=== PATIENT | male | born 1975 | race Caucasian/White ===

== ENCOUNTER 2017-07-20 15:35 | Emergency (ER) | payer SELFPAY ==
[2017-07-20] MEDS ORDERED: ONDANSETRON 4 MG/2 ML VIAL ONE (15:57)
[2017-07-20 16:24] LABS: Potassium 3.7 mEq/L (3.6-5.0)
--- NOTE | 2017-07-20 16:24 | RAD REPORT ---
EXAM DESCRIPTION: RAD - Chest Single View - 07/20/2017 4:09 pm CLINICAL HISTORY: Vomiting, altered mental status, possible heat exhaustion COMPARISON: March 27 TECHNIQUE: AP portable chest image was obtained 1605 hours . FINDINGS: Lung volumes are low. No pulmonary edema or focal lung parenchymal process. Interstitial m arkings are similar to the comparison when adjusting for the shallow inspiration. Heart and vasculatu re are normal. No measurable pleural effusion and no pneumothorax. No gross bony abnormality seen. No acute aortic findings suspected. IMPRESSION: No acute cardiopulmonary process.
[2017-07-20 16:31] LABS: Absolute Lymphocytes (CBC) 1.6 K/uL (0.7-4.9); Absolute Monocytes 0.7 K/uL (0.1-1.3); Absolute Neutrophil 2.7 K/uL (1.8-8.0); Albumin 4.3 g/dL (3.2-5.5); Basophils % 0.7 % (0-1.3); Bilirubin Direct 0.1 mg/dL (0-0.2); Bilirubin Total 0.7 mg/dL (0.3-1.2); Hematocrit 45.6 % (39.6-49.0); Lymphocytes % 31.1 % (15.3-44.8); MCH 29.1 pg (27.0-35.0); MCV 87.2 fL (80-100); MPV 8.3 fL (7.6-11.3); Magnesium 1.9 mg/dL (1.8-2.5); Monocytes % 13.7 % (3.3-12.3); Protein, Total 7.4 g/dL (6.0-8.3); RBC Red Blood Cell Count 5.24 M/uL (4.33-5.43)
[2017-07-20 16:34] LABS: CKMB Creatine Kinase MB 2.3 ng/ml (0.3-4.0)
--- NOTE | 2017-07-20 17:10 | RAD REPORT ---
EXAM DESCRIPTION: CT - Head Brain Wo Cont - 07/20/2017 5:01 pm CLINICAL HISTORY: Headache COMPARISON: None. TECHNIQUE: Axial 5 mm thick images of the head were obtained without IV contrast. All CT scans are performed using dose optimization technique as appropriate and may include automated exposure control or mA/KV adjustment according to patient size. FINDINGS: No intracranial hemorrhage, mass, edema or shift of mid-line structures. No acute infarcti on changes seen. No abnormal extra-axial fluid collections. Ventricles are normal. Mastoid air cells and visualized portions of the paranasal sinuses are clear. No acute bony findings. IMPRESSION: Negative non-contrast CT head examination.
[2017-07-20] MEDS ORDERED: ACETAMINOPHEN 500 MG TAB ONE (17:45)
--- NOTE | 2017-07-20 18:42 | EDPHYS ---
Physician Documentation [facility] Name: Luis Angel Bower Age: 41 yrs Sex: Male : 1975 Arrival Date: 07/20/2017 Time: 15:42 Bed 4 Private MD: ED Physician Cuauhtemoc James HPI: 07/20 16:15 This 41 yrs old Male presents to ER via EMS with complaints of Vomiting. pm1 16:15 The patient presents to the emergency department with vomiting. Onset: The pm1 symptoms/episode began/occurred 1 hour after lunch around 1315. Possible causes: Heat or bad food. The symptoms are aggravated by nothing. The symptoms are alleviated by nothing. Associated signs and symptoms: Pertinent positives: nausea, vomiting, Headache, Pertinent negatives: abdominal pain, fever. The patient has not experienced similar symptoms in the past. Patient ate egg rolls and sweet and sour sauce for lunch. About 1 hour later the patient started having vomiting. After multiple episodes of vomiting, the patient reports that he thought that he tasted some blood. Patient started hyperventilating according to his boss and started reporting a headache with some numbness to both arms. 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 Patient reports that the heat monitor on his leg was 104. 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 - Social history:: Smoking status: . - Ebola Screening: : Patient negative for fever greater than or equal to 101.5 degrees Fahrenheit, and additional compatible Ebola Virus Disease symptoms Patient denies exposure to infectious person Patient denies travel to an Ebola-affected area in the 21 days before illness onset No symptoms or risks identified at this time. ROS: 16:15 Eyes: Negative for injury, pain, redness, and discharge, ENT: Negative for injury, pm1 pain, and discharge, Neck: Negative for injury, pain, and swelling, Cardiovascular: Negative for chest pain, palpitations, and edema, Respiratory: Negative for shortness of breath, cough, wheezing, and pleuritic chest pain. 16:15 Back: Negative for injury and pain, : Negative for injury, bleeding, discharge, and swelling, MS/Extremity: Negative for injury and deformity, Skin: Negative for injury, rash, and discoloration. 16:15 Constitutional: Positive for body aches, Negative for chills, fever, poor PO intake. 16:15 Abdomen/GI: Positive for nausea and vomiting, Negative for abdominal pain, diarrhea. 16:15 Neuro: Positive for headache, Negative for numbness, syncope, near syncope, tingling. Exam: 16:15 Constitutional: This is a well developed, well nourished patient who is awake, alert, pm1 and in no acute distress. Head/Face: Normocephalic, atraumatic. Eyes: Pupils equal round and reactive to light, extra-ocular motions intact. Lids and lashes normal. Conjunctiva and sclera are non-icteric and not injected. Cornea within normal limits. Periorbital areas with no swelling, redness, or edema. ENT: Nares patent. No nasal discharge, no septal abnormalities noted. Tympanic membranes are normal and external auditory canals are clear. Oropharynx with no redness, swelling, or masses, exudates, or evidence of obstruction, uvula midline. Mucous membranes moist. Neck: Trachea midline, no thyromegaly or masses palpated, and no cervical lymphadenopathy. Supple, full range of motion without nuchal rigidity, or vertebral point tenderness. No Meningismus. Chest/axilla: Normal chest wall appearance and motion. Nontender with no deformity. No lesions are appreciated. Cardiovascular: Regular rate and rhythm with a normal S1 and S2. No gallops, murmurs, or rubs. No pulse deficits. Respiratory: Lungs have equal breath sounds bilaterally, clear to auscultation and percussion. No rales, rhonchi or wheezes noted. No increased work of breathing, no retractions or nasal flaring. Abdomen/GI: Soft, non-tender, with normal bowel sounds. No distension or tympany. No guarding or rebound. No evidence of tenderness throughout. Back: No spinal tenderness. No costovertebral tenderness. Full range of motion. Skin: Warm, dry with normal turgor. Normal color with no rashes, no lesions, and no evidence of cellulitis. MS/ Extremity: Pulses equal, no cyanosis. Neurovascular intact. Full, normal range of motion. 16:15 Neuro: Orientation: is normal, to person, place, time, situation, Motor: moves all fours. Vital Signs: 15:49 BP 112 / 91; Pulse 82 MON; Resp 16 S; Temp 98.2(O); Pulse Ox 100% on R/A; Pain 7/10; iw 16:33 BP 120 / 94 Sitting; Pulse 83; Resp 16; Pulse Ox 99% on R/A; ag 16:33 BP 131 / 94 Standing; Pulse 88; Resp 19; Pulse Ox 96% on R/A; ag 16:33 BP 132 / 77 Supine; Pulse 65; Resp 17; Pulse Ox 99% on R/A; ag 18:05 BP 136 / 80; Pulse 62; Resp 16 S; Pulse Ox 99% on R/A; iw MDM: 15:46 Patient medically screened. pm1 18:40 ED course: Patient passed PO challenge. pm1 18:42 Data reviewed: vital signs. Data interpreted: Pulse oximetry: on room air is 99 %. pm1 Interpretation: normal. Counseling: I had a detailed discussion with the patient and/or guardian regarding: the historical points, exam findings, and any diagnostic results supporting the discharge/admit diagnosis, lab results, radiology results, the need for outpatient follow up, to return to the emergency department if symptoms worsen or persist or if there are any questions or concerns that arise at home. 07/20 15:47 Order name: Basic Metabolic Panel; Complete Time: 16:35 pm1 07/20 15:47 Order name: BNP; Complete Time: 17:13 pm1 07/20 15:47 Order name: CBC with Diff; Complete Time: 16:35 pm1 07/20 15:47 Order name: Ckmb; Complete Time: 16:35 pm1 07/20 15:47 Order name: CPK; Complete Time: 16:35 pm1 07/20 15:47 Order name: LFT's; Complete Time: 16:35 pm1 07/20 15:47 Order name: Magnesium; Complete Time: 16:35 pm1 07/20 15:47 Order name: PT-INR; Complete Time: 16:36 pm1 07/20 15:47 Order name: Ptt, Activated; Complete Time: 16:36 pm1 07/20 15:47 Order name: Troponin (emerg Dept Use Only); Complete Time: 16:35 pm1 07/20 15:47 Order name: XRAY Chest (1 view); Complete Time: 16:35 pm1 07/20 16:36 Order name: CT Head Brain wo Cont; Complete Time: 17:13 pm1 07/20 15:47 Order name: EKG; Complete Time: 15:47 pm1 07/20 15:47 Order name: Cardiac monitoring; Complete Time: 15:53 pm1 07/20 15:47 Order name: EKG - Nurse/Tech; Complete Time: 16:03 pm1 07/20 15:47 Order name: IV Saline Lock; Complete Time: 16:03 pm1 07/20 15:47 Order name: Labs collected and sent; Complete Time: 16:03 pm1 07/20 15:47 Order name: O2 Per Protocol; Complete Time: 16:03 pm1 07/20 15:47 Order name: O2 Sat Monitoring; Complete Time: 16:03 pm1 07/20 15:47 Order name: Orthostatic Blood Pressure; Complete Time: 16:32 pm1 Administered Medications: 16:03 Drug: Zofran 4 mg Route: IVP; Site: right antecubital; iw 18:06 Follow up: Response: No adverse reaction iw 17:52 Drug: Tylenol 500 mg Route: PO; sg 18:06 Follow up: Response: No adverse reaction iw Disposition: 22:16 Co-signature as Attending Physician, Cuauhtemoc James MD I agree with the assessment and kdr plan of care. Disposition: 07/20/17 18:42 Discharged to Home. Impression: Vomiting, Dehydration. - Condition is Stable. - Discharge Instructions: Dehydration, Adult, Nausea and Vomiting, Rehydration, Adult. - Prescriptions for Zofran 4 mg Oral Tablet - take 1 tablet by ORAL route every 12 hours As needed; 20 tablet. - Medication Reconciliation Form, Thank You Letter form. - Follow up: Private Physician; When: 2 - 3 days; Reason: Recheck today's complaints, Continuance of care, Re-evaluation by your physician. - Problem is new. - Symptoms have improved. Signatures: Dispatcher [employer] EDOsmani Shahid RN RN sg Rittger, Cuauhtemoc, MD Heydi Thomson, RN RN iw Sujit Prajapati, DATA SECURITY COORDINATOR DATA SECURITY COORDINATOR pm1 Corrections: (The following items were deleted from the chart) 19:06 15:47 Urine Dipstick-Ancillary ordered. pm1 19:07 18:42 07/20/2017 18:42 Discharged to Home. Impression: Vomiting; Dehydration. Condition sg is Stable. Discharge Instructions: Dehydration, Adult, Rehydration, Adult, Food Poisoning, Nausea and Vomiting. Prescriptions for Zofran 4 mg Oral Tablet - take 1 tablet by ORAL route every 12 hours As needed; 20 tablet. and Forms are Medication Reconciliation Form, Thank You Letter, Antibiotic Education, Prescription Opioid Use. Follow up: Private Physician; When: 2 - 3 days; Reason: Recheck today's complaints, Continuance of care, Re-evaluation by your physician. Problem is new. Symptoms have improved. pm1
--- NOTE | 2017-07-20 18:42 | ER ---
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 Transition of care: patient was not received from another setting of care. Onset of symptoms was July 20, 2017. Risk Assessment: Do you want to hurt yourself or someone else? Patient reports no desire to harm self or others. Initial Sepsis Screen: Does the patient meet any 2 criteria? No. Patient's initial sepsis screen is negative. Does the patient have a suspected source of infection? No. Patient's initial sepsis screen is negative. Care prior to arrival: Medication(s) given: Normal saline infusion, 1000 mL, IV initiated. 18 GA, in the right antecubital area. 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 - Social history:: Smoking status: . - Ebola Screening: : Patient negative for fever greater than or equal to 101.5 degrees Fahrenheit, and additional compatible Ebola Virus Disease symptoms Patient denies exposure to infectious person Patient denies travel to an Ebola-affected area in the 21 days before illness onset No symptoms or risks identified at this time. Screenin:52 Abuse screen: Denies threats or abuse. Denies injuries from another. Nutritional iw screening: No deficits noted. Tuberculosis screening: No symptoms or risk factors identified. Fall Risk IV access (20 points). Assessment: 15:46 General: Appears in no apparent distress. Behavior is calm, cooperative. Pain: iw Complains of pain in head. Neuro: Level of Consciousness is awake, alert, obeys commands, Oriented to person, place. Cardiovascular: Patient's skin is warm and dry. Respiratory: Respiratory effort is even, Respiratory pattern is regular, symmetrical. GI: Abdomen is non-distended, Bowel sounds present X 4 quads. Reports nausea, vomiting. Derm: Skin is healthy with good turgor, Skin is flushed. Musculoskeletal: Range of motion: intact in all extremities. 16:03 Reassessment: Patient appears in no apparent distress at this time. Patient and/or iw family updated on plan of care and expected duration. Pain level reassessed. Patient is alert, oriented x 3, equal unlabored respirations, skin warm/dry/pink. 18:04 Reassessment: Patient appears in no apparent distress at this time. Patient and/or iw family updated on plan of care and expected duration. Pain level reassessed. Patient is alert, oriented x 3, equal unlabored respirations, skin warm/dry/pink. Vital Signs: 15:49 BP 112 / 91; Pulse 82 MON; Resp 16 S; Temp 98.2(O); Pulse Ox 100% on R/A; Pain 7/10; iw 16:33 BP 120 / 94 Sitting; Pulse 83; Resp 16; Pulse Ox 99% on R/A; ag 16:33 BP 131 / 94 Standing; Pulse 88; Resp 19; Pulse Ox 96% on R/A; ag 16:33 BP 132 / 77 Supine; Pulse 65; Resp 17; Pulse Ox 99% on R/A; ag 18:05 BP 136 / 80; Pulse 62; Resp 16 S; Pulse Ox 99% on R/A; iw ED Course: 15:30 Arm band placed on. iw 15:42 Patient arrived in ED. iw 15:42 Heydi Melendez, MERT is Primary Nurse. iw 15:46 Sujit Prajapati NP is PHCP. pm1 15:46 Cuauhtemoc James MD is Attending Physician. pm1 15:46 Patient has correct armband on for positive identification. iw 15:49 Triage completed. iw 15:51 Initial lab(s) drawn, by me. Maintain EMS IV. Dressing intact. Good blood return noted. iw Site clean \\T\\ dry. Gauge \\T\\ site: 18 RAC. 15:58 EKG done, by technology administrator. reviewed by Sujit Prajapati NP. at1 16:08 X-ray completed. Portable x-ray completed in exam room. Patient tolerated procedure bb2 well. 16:09 XRAY Chest (1 view) In Process Unspecified. EDMS 16:[address] vm2 17:01 CT Head Brain wo Cont In Process Unspecified. EDMS 17:01 CT completed. Patient tolerated procedure well. Patient moved back from CT. nj 19:05 No provider procedures requiring assistance completed. IV discontinued, intact, iw bleeding controlled, No redness/swelling at site. Pressure dressing applied. Administered Medications: 16:03 Drug: Zofran 4 mg Route: IVP; Site: right antecubital; iw 18:06 Follow up: Response: No adverse reaction iw 17:52 Drug: Tylenol 500 mg Route: PO; sg 18:06 Follow up: Response: No adverse reaction iw Outcome: 18:42 Discharge ordered by . pm1 19:07 Patient left the ED. sg 19:07 Discharged to home ambulatory, with family. iw 19:07 Condition: good 19:07 Instructed on discharge instructions, follow up and referral plans. Signatures: Dispatcher [employer] EDMS Osmani Rose RN RN sg Williams, Irene, RN RN iw Veronique prabhakar, inside sales director EKG Tat1 Gilbert, Sujit Chacon NP MARKET ASSET PROTECTION MANAGER pm1 Forrest Piña Victoria vm2 Claudia Garcia bb2 Corrections: (The following items were deleted from the chart) 15:52 15:49 BP 112 / 91; Pulse 82bpm; MonitorResp 10bpm; Pulse Ox 100% RA; Temp 98.2F Oral; iw Pain 7/10; sg 18:08 18:05 Pulse 62bpm; Resp 16bpm; Spontaneous; Pulse Ox 99% RA; iw iw
[2017-07-20 19:12] VITALS: TEMP 98.2
[2017-07-20 19:14] VITALS: O2SAT 99
[2017-07-20 19:16] VITALS: BP 136/80
--- NOTE | 2017-07-21 06:52 | EKG ---
Test Date: 2017-07-20 Test Time: 15:48:35 Flask Cleaner: EFRAIN MEASUREMENT RESULTS: Intervals: Rate: 80 CO: 158 QRSD: 84 QT: 362 QTc: 417 [place]: P: 51 CO: 158 QRS: 55 T: 45 INTERPRETIVE STATEMENTS: Normal sinus rhythm with sinus arrhythmia Normal ECG Compared to ECG 07/14/2016 20:23:38 Sinus bradycardia no longer present Electronically Signed On 07-21-17 06:51:34 CDT by Cleve Aquino
== END 2017-07-20 19:07 | disposition home or self-care (01) ==
LOC: ER 15:35
DX: E86.0 Dehydration (principal); Z85.47 Personal history of malignant neoplasm of testis; Z88.3 Allergy status to other anti-infective agents; Z88.5 Allergy status to narcotic agent; Z91.018 Allergy to other foods
CPT/HCPCS: 36415; 70450; 71045; 80048; 80076; 82550; 82553; 83735; 83880; 84484; 85025; 85610; 85730; 93005; 96374; 99284; J2405

== ENCOUNTER 2018-08-26 16:56 | Emergency (ER) | payer SELFPAY ==
--- OUTSIDE RECORDS SUMMARY | 2018-08-26 17:11 | XMS REPORT | Continuity of Care Document ---
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 Stop date: 12/11/17 13:00:00 CDTNotes: Remove patch 12 hours after application each day. Oxycodone 5 mg, 1 tab, Inactive [place] Hydrochloride 5 MG Route: PO, 2018 Medical Oral Tablet ONCE, Dosing Center Weight 90.909, kg, Start date: 11/12/17 12:35:00 CDT, Stop date: 11/12/17 12:35:00 CDT Cefazolin 2 gm, 20 mL, No Longer [place] Route: IVP, Active 2017 Medical Drug form: [place] SOLN, [id number], Dosing Weight 90.909, kg, Start date: 11/12/17 12:00:00 CDT, Duration: 1 day, Stop date: 11/13/17 8:00:00 CDT, ABX Indication: Surgical ProphylaxisNot es: (Same as Ancef) ondansetron (ANES) Route: IV, Inactive [place] Drug form: 2018 Medical INJ, ONCE, [place] Stop date: 11/12/17 11:37:00 CDT ketAMINE (ANES) Route: IV, Inactive [place] Drug form: 2018 Medical INJ, ONCE, Center Stop date: 11/12/17 10:56:00 CDT alfentanil (ANES) Route: IV, Inactive [facility] Drug form: 2018 Medical INJ, ONCE, Center Stop date: 11/12/17 10:46:00 CDT dexamethasone Route: IV, Inactive [facility] (ANES) Drug form: 2018 Medical INJ, ONCE, Center Stop date: 11/12/17 10:41:00 CDT succinylcholine Route: IV, Inactive [facility] (ANES) Drug form: 2018 Medical INJ, ONCE, Center Stop date: 11/12/17 10:41:00 CDT lidocaine (ANES) Route: IV, Inactive [facility] Drug form: 2018 Medical INJ, ONCE, Center Stop date: 11/12/17 10:36:00 CDT propofol (ANES) Route: IV, Inactive [facility] Drug form: 2017 Medical INJ, ONCE, Center Stop date: 11/12/17 10:36:00 CDT ceFAZolin (ANES) Route: IV, Inactive [facility] Drug form: 2017 Medical INJ, ONCE, Center Stop date: 11/12/17 10:36:00 CDT Lactated Ringers Route: IV, Inactive [facility] Injection IV Total Volume: 2017 Medical (ANES) 1000 mL 1,000, Start Center date: 11/12/17 9:48:00 CDT, Stop date: 11/12/17 10:48:00 CDT Ondansetron 4 mg, 2 mL, Inactive [facility] Route: IVP, 2017 Medical Drug form: Center INJ, ONCE, Dosing Weight 90.909, kg, PRN Nausea & Vomiting, Start date: 11/12/17 9:37:00 CDTNotes: (Same as: Zofran) MEDICATION WASTE Product Size: 4 mg Product Wasted: ___ mg Naloxone 0.4 mg, 1 mL, Inactive [facility] Route: IVP, 2017 Medical Drug form: Center INJ, Q2MIN, Dosing Weight 90.909, kg, PRN Narcotic Reversal, Start date: 11/12/17 9:37:00 CDT, Duration: 8 doses or times, Stop date: Limited # of timesNotes: (Same as: Narcan) Flumazenil 0.2 mg, 2 mL, Inactive [place] Route: IVP2017 Medical Drug form: [place] INJ, PRN, Dosing Weight 90.909, kg, PRN Benzodiazepine Reversal, Initial dose, Start date: 11/12/17 9:37:00 CDT, Duration: 1 day, Stop date: 11/13/17 9:36:00 CDTNotes: (Same as: Romazicon) Morphine 2 mg, 0.5 mL, Inactive [place] Route: IVP2017 Medical Drug form: [place] SOLN, Q5Min, Dosing Weight 90.909, kg, PRN Pain Score 7-10, Start date: 11/12/17 9:37:00 CDT, Duration: 3 doses or times, Stop date: Limited # of timesNotes: (Same as:MORPhine Sulfate) Miralax 17 gm, 1 pkt, No Longer [place] Route: PO, Active 2017 Medical Drug form: [place] PWDR, Daily, Dosing Weight 90.909, kg, Start date: 11/12/17 9:00:00 CDT, Duration: 30 day, Stop date: 12/11/17 9:00:00 CDTNotes: Dissolve in 8 oz of water or juice. (Same as: Miralax) Docusate Sodium 100 mg, 1 cap, No Longer [place] 100 MG Oral Route: PO, Active 2017 Medical Capsule [Colace] Drug form: [place] CAP, BID, Dosing Weight 90.909, kg, Start date: 11/12/17 9:00:00 CDT, Duration: 30 day, Stop date: 12/11/17 17:00:00 CDTNotes: (Same as: Colace) (Do Not Crush) sennosides, PENITENTIARY 8.6 mg, 1 tab, No Longer [place] 8.6 MG Oral Tablet Route: PO, Active 2017 Medical Drug Form: [place] TAB, Dosing Weight 90.909, kg, Daily, Start date: 11/12/17 9:00:00 CDT, Duration: 30 day, Stop date: 12/11/17 9:00:00 CDTNotes: (Same as: Senokot) celecoxib 200 mg, 1 cap, No Longer [place] Route: PO, Active 2017 Medical Drug form: [facility] CAP, Q12H, Dosing Weight 90.909, kg, For patients LESS than 75 years old. Hold in all patients if CrCl Notes: NSAID. Please check indication. Not for seizure. (Same As: CeleBREX) Oxycodone 5 mg, 1 tab, Inactive [place] Hydrochloride 5 MG Route: PO, 2018 Medical Oral Tablet Drug form: [facility] TAB, ONCE, Dosing Weight 90.909, kg, Start date: 11/12/17 6:18:00 CDT, Stop date: 11/12/17 6:18:00 CDTNotes: (Same as: Roxicodone) Valium Route: IVP, Inactive [place] Drug form: 2018 Medical INJ, ONCE, Center Dosing Weight 90.909, kg, PRN Anxiety, Start date: 11/12/17 6:01:00 CDTNotes: WASTE: F/P - Black; E - White/Blue Acetaminophen 1,000 mg, 100 No Longer [place] mL, Route: Active 2017 Medical IVPB, Drug Center form: INJ, Q6H, Dosing Weight 90.909, kg, Start date: 11/12/17 6:00:00 CDT, Duration: 24 hr, Stop date: 11/13/17 0:00:00 CDTNotes: Infuse over 15 minutes Do not exceed 4gm/day of acetaminophen MEDICATION WASTE Product Size: 1000 mg Product Wasted: ___ mg Melatonin 3 MG 3 mg, 1 tab, No Longer [place] Extended Release Route: PO, Active 2017 Medical Tablet Drug Form: [facility] TAB, Dosing Weight 90.909, kg, Bedtime, PRN as needed for insomnia, Start date: 11/12/17 2:45:00 CDT, Duration: 30 day, Stop date: 12/12/17 2:44:00 CDTNotes: (Same as: Melatonin) Lidocaine 1 patch, No Longer [place] Hydrochloride 0.05 Route: TOP, Active 2017 Medical MG/MG Transdermal Q24H, Drug Center Patch [Lidoderm] form: FILM, Start date: 11/12/17 1:00:00 CDT, Duration: 30 day, Stop date: 12/11/17 1:00:00 CDTNotes: Apply only once for up to 12 hours in a 24-hour period (12 hours on and 12 hours off). (Same as: Lidoderm) "Remove old patch before application of new patch" Enoxaparin 30 mg, 0.3 mL, No Longer [place] Route: SUB-Q, Active 2017 Medical Drug form: [place] INJ, [id number], Dosing Weight 90.909, kg, Start date: 11/12/17 1:00:00 CDT, Stop date: 12/11/17 13:00:00 CDTNotes: (Same as: Lovenox) Ketorolac 30 mg, 1 mL, Inactive [place] Route: IVP, 2017 Medical Drug form: [place] INJ, ONCE, Dosing Weight 90.909, kg, Start date: 11/12/17 0:02:00 CDT, Stop date: 11/12/17 0:02:00 CDTNotes: (Same as:Toradol) IV bolus must be given >15 seconds. Give IM administration slowly and deeply into the muscle. Not for use > 4 days MEDICATION WASTE Product Size: 30 mg Product Wasted: ___ mg Oxycodone 10 mg, 2 tab, No Longer [place] Hydrochloride 5 MG Route: PO, Active 2017 Medical Oral Tablet Drug form: [facility] TAB, Q4H, Dosing Weight 90.909, kg, PRN Pain Score 7-10, Start date: 11/12/17 0:02:00 CDT, Duration: 30 day, Stop date: 12/12/17 0:01:00 CDTNotes: (Same as: Roxicodone) Tramadol 100 mg, 2 tab, No Longer [place] Route: PO, Active 2017 Medical Drug form: [facility] TAB, Q6H, Dosing Weight 90.909, kg, Priority: NOW, Start date: 11/12/17 0:02:00 CDT, Duration: 30 day, Stop date: 12/12/17 0:00:00 CDTNotes: Not to exceed 400mg/day. (Same As: Ultram) pregabalin 100 mg, 1 cap, No Longer [place] Route: PO, Active 2018 Medical Drug form: [place] CAP, Q8H, Dosing Weight 90.909, kg, Priority: NOW, Start date: 11/12/17 0:02:00 CDT, Duration: 48 hr, Stop date: 11/14/17 0:00:00 CDTNotes: (Same as: Lyrica) Tylenol 1,000 mg, 100 Inactive [place] mL, Route: IV, 2018 Medical Drug form: [place] INJ, ONCE, Dosing Weight 90.909, kg, Start date: 11/11/17 21:51:00 CDT, Stop date: 11/11/17 21:51:00 CDTNotes: Infuse over 15 minutes Do not exceed 4gm/day of acetaminophen MEDICATION WASTE Product Size: 1000 mg Product Wasted: ___ mg influenza virus 0.5 mL, Route: Inactive [place] vaccine, IM, ONCALL, 2018 Medical inactivated Start date: Center 11/11/17 21:15:32 CDT, Stop date: 12/11/17 21:10:32 CDT Phenergan 25 mg, Route: Inactive [facility] IVPB, ONCE, 2018 Medical Dosing Weight Center 90.909, kg, Priority: STAT, Start date: 11/11/17 19:48:00 CDT, Stop date: 11/11/17 19:48:00 CDT Dilaudid 1 mg, Route: Inactive [facility] IV, ONCE, 2018 Medical Dosing Weight Center 90.909, kg, Start date: 11/11/17 19:28:00 CDT, Stop date: 11/11/17 19:28:00 CDT Fentanyl 100 microgram, Inactive [facility] Route: IVP, 2018 Medical ONCE, Dosing Center Weight 90.909, kg, Priority: STAT, Start date: 11/11/17 19:03:00 CDT, Stop date: 11/11/17 19:03:00 CDT Calcium Chloride 1,000 mL, Inactive [facility] 0.0014 MEQ/ML / 1,000 ml/hr, 2018 Medical Potassium Chloride Infuse Over: 1 Center 0.004 MEQ/ML / hr, Route: IV, Sodium Chloride 1,000, Drug 0.103 MEQ/ML / form: INJ, Sodium Lactate ONCE, 0.028 MEQ/ML Priority: Injectable STAT, Dosing Solution Weight 90.909 kg, Start date: 11/11/17 18:18:00 CDT, Stop date: 11/11/17 18:18:00 CDT iodixanol 100 mL, Route: Inactive [facility] IVP, Drug 2017 Medical Form: [facility] Dosing Weight 90.909, kg, ONCALL, STAT, Start date: 11/11/17 17:53:00 CDT, Duration: 1 doses or times, Dose=2.2ml/kg, Max jpsr=949pc -- "To be infused by Radiology Staff ONLY" Fentanyl 100 microgram, Inactive [facility] Route: IV, 2018 Medical ONCE, Dosing Center Weight 90.909, kg, Priority: STAT, Start date: 11/11/17 17:35:00 CDT, Stop date: 11/11/17 17:35:00 CDT Tylenol 650 mg, 2 tab, Inactive [facility] Route: PO, 2018 Medical Drug form: [place] TAB, ONCE, Dosing Weight 90.909, kg, Priority: STAT, Start date: 11/11/17 17:23:00 CDT, Stop date: 11/11/17 17:23:00 CDTNotes: Do not exceed 4 gm/day. (Same as: Tylenol) Fentanyl 100 microgram, Inactive [place] 2 mL, Route: 2018 Medical IVP, Drug Center form: INJ, ONCE, Dosing Weight 90.909, kg, Priority: STAT, Start date: 11/11/17 17:19:00 CDT, Stop date: 11/11/17 17:19:00 CDTNotes: (Same as: Sublimaze) Preservative free. Cefazolin 2 gm, 20 mL, Inactive [facility] Route: IV, 2017 Medical Drug form: [facility] SOLN, ONCE, Dosing Weight 90.909, kg, (for patients 50 -120 kg), Priority: STAT, Start date: 11/11/17 17:19:00 CDT, Stop date: 11/11/17 17:19:00 CDT, ABX Indication: Open Wound ProphylaxisNot es: (Same as Ancef) Ondansetron 4 mg, 2 mL, Inactive [facility] Route: IVP, 2018 Medical Drug form: [facility] INJ, ONCE, Dosing Weight 90.909, kg, Priority: STAT, Start date: 11/11/17 17:19:00 CDT, Stop date: 11/11/17 17:19:00 CDTNotes: (Same as: Zofran) MEDICATION WASTE Product Size: 4 mg Product Wasted: 0 mg Hydromorphone 0.5 mg, 0.25 Inactive [facility] mL, Route: 2018 Medical IVP, Drug Center form: INJ, ONCE, Dosing Weight 90.909, kg, Priority: STAT, Start date: 11/11/17 17:19:00 CDT, Stop date: 11/11/17 17:19:00 CDTNotes: Same as Dilaudid Saline Flush 0.9% 10 mL, Route: No Longer [facility] IVP, Drug Active 2017 Medical Form: INJ, Center Dosing Weight 90.909, kg, PRN, PRN Line Flush, Start date: 11/11/17 17:19:00 CDT, Duration: 30 day, Stop date: 12/11/17 17:18:00 CDTNotes: (Same as: BD Posiflush) Allergies, Adverse Reactions, Alerts Substance Category Reaction Severity Reaction Status Date Comments Source type Reported morphine Assertion Drug Active [facility] allergy [facility] Immunizations Immunization Date Site Status Last Comments Source Given Updated diphtheria/pertu Right completed Mike [facility] ssis, 8 deltoid [facility] acel/tetanus [place], adult [facility] Results Order Name Results Value Reference Date Interpretation Comments Source Range ELECTROLYTE AGAP 13.7 10.0 - 10 [facility] S 20.0 /2018 Medical Center ELECTROLYTE eGFR 86 11/21 Result [facility] /2017 Comment: The Medical eGFR is Center calculated using the CKD-EPI formula. In most young, healthy individuals the eGFR will be >90 mL/min/1.73m2 . The eGFR declines with age. An eGFR of 60-89 may be normal in some populations, particularly the elderly, for whom the CKD-EPI formula has not been extensively validated. Use of the eGFR is not recommended in the following populations:< br/>
[place] viduals with unstable creatinine concentration s, including patients and those with serious co-morbid conditions.<b r/>
Patie nts with extremes in muscle mass or diet.

The data above are obtained from the National Kidney Disease Education Program (NKDEP) which additionally recommends that when the eGFR is used in patients with extremes of body mass index for purposes of drug dosing, the eGFR should be multiplied by the estimated BMI. ELECTROLYTE Calcium Lvl 8.5 8.5 - 10.5 11/[address] ELECTROLYTE CO2 25 24 - 32 11/[address] ELECTROLYTE Chloride Lvl 98 95 - 109 11/[address] ELECTROLYTE BUN 16 7 - 22 11/[address] ELECTROLYTE Potassium Lvl 3.7 3.5 - 5.1 11/[address] ELECTROLYTE Glucose Lvl 95 70 - 99 11/[address] ELECTROLYTE Sodium Lvl 133 135 - 145 11/[address] ELECTROLYTE Creatinine 1.06 0.50 - 11/21 [facility] S Lvl 1.40 /2017 [facility] HEMATOLOGY Segs 76.5 45.0 - 11/21 [facility] [address] [place] [address] HEMATOLOGY Lymphocytes 12.4 20.0 - 11/21 [facility] [address] [place] [address] HEMATOLOGY Monocytes 9.6 2.0 - 12.0 11/[address] HEMATOLOGY Eosinophils 1.2 0.0 - 4.0 11/[address] HEMATOLOGY Basophils 0.3 0.0 - 1.0 11/[address] HEMATOLOGY Neutrophils # 7.8 1.5 - 8.1 11/[address] HEMATOLOGY Lymphocytes # 1.3 1.0 - 5.5 11/[address] HEMATOLOGY Monocytes # 1.0 0.0 - 0.8 11/[address] HEMATOLOGY Eosinophils # 0.1 0.0 - 0.5 11/[address] HEMATOLOGY Platelet 309 133 - 450 11/[address] HEMATOLOGY MPV 7.4 7.4 - 10.4 11/[address] HEMATOLOGY RDW 13.6 11.5 - 10 [place] 14.5 /2017 [facility] HEMATOLOGY MCHC 34.8 32.0 - 10 [place] 36.0 /2017 [facility] HEMATOLOGY WBC 10.2 3.7 - 10.4 10 [facility] HEMATOLOGY Hgb 12.0 14.0 - 11/21 [place] 18.0 [facility] HEMATOLOGY MCV 88.6 80.0 - 10 [place] 94.0 /2017 [facility] HEMATOLOGY RBC 3.91 4.70 - 10 [place] 6.10 /2017 [facility] HEMATOLOGY Hct 34.6 42.0 - 10 [place] 54.0 /2017 [facility] HEMATOLOGY MCH 30.8 27.0 - 10 [place] 31.0 [facility] URINE AND UA <=1.0 0.1 - 1.0 11/15 [facility] Urobilinogen mg/dL [facility] URINE AND UA Sq Epi None Seen 11/15 [facility] URINE AND UA RBC 1 0 - 2 11/15 [facility] STOOL /2017 [facility] URINE AND UA Bacteria Occasional None Seen 11/15 [facility] STOOL /HPF /HPF /2017 [facility] URINE AND UA Nitrite Negative Negative 11/15 [facility] (11/15/17 12:47 AM) /2017 [facility] URINE AND UA Leuk Est Negative Negative 11/15 [facility] (11/15/17 12:47 AM) [facility] URINE AND UA WBC 2 0 - 5 11/15 [facility] [address] [place] [address] URINE AND UA Ketones Negative Negative 11/15 [facility] STOOL mg/dL mg/dL [facility] URINE AND UA Bili Negative Negative 11/15 [facility] STOOL *NA* /2017 [facility] (11/15/17 12:47 AM) [place] URINE AND UA Blood Negative Negative 11/15 [facility] (11/15/17 12:47 AM) [facility] URINE AND UA pH 7.0 5.0 - 8.0 11/15 [facility] [address] [place] [address] URINE AND UA Glucose Negative Negative 11/15 [facility] STOOL mg/dL mg/dL [facility] URINE AND UA Protein Negative Negative 11/15 [facility] STOOL mg/dL mg/dL [facility] URINE AND UA Color Yellow Yellow 11/15 [facility] STOOL *NA* /2017 [facility] (11/15/17 12:47 AM) [place] URINE AND UA Turbidity Clear Clear 11/15 [facility] STOOL (11/15/17 12:47 AM) [facility] URINE AND UA Spec Grav 1.010 <=1.030 11/15 [facility] STOOL [facility] HEMATOLOGY Monocytes # 0.3 0.0 - 0.8 11/12 [facility] HEMATOLOGY Lymphocytes # 0.6 1.0 - 5.5 11/12 [facility]2017 [facility] HEMATOLOGY Neutrophils # 9.1 1.5 - 8.1 11/12 [facility] HEMATOLOGY Monocytes 3.1 2.0 - 12.0 11/12 [facility] HEMATOLOGY Lymphocytes 5.7 20.0 - 11/12 [place] 40.0 [facility] HEMATOLOGY Basophils 0.1 0.0 - 1.0 11/12 [facility] HEMATOLOGY Eosinophils 0.1 0.0 - 4.0 11/12 [facility]2017 [facility] HEMATOLOGY Segs 91.0 45.0 - 11/12 [place] 75.0 [facility] HEMATOLOGY MCHC 34.1 32.0 - 11/12 [place] 36.0 [facility] HEMATOLOGY Platelet 199 133 - 450 11/12 [facility] HEMATOLOGY RDW 13.7 11.5 - 11/12 [place] 14.5 [facility] HEMATOLOGY MPV 8.0 7.4 - 10.4 11/12 2017 [facility] HEMATOLOGY MCH 30.5 27.0 - 11/12 [place] 31.0 [facility] HEMATOLOGY MCV 89.2 80.0 - 11/12 [place] 94.0 [facility] HEMATOLOGY WBC 10.0 3.7 - 10.4 11/12 [facility] HEMATOLOGY Hct 41.4 42.0 - 11/12 [place] 54.0 [facility] HEMATOLOGY Hgb 14.1 14.0 - 11/12 [place] 18.0 [facility] HEMATOLOGY RBC 4.64 4.70 - 11/12 [place] 6.10 [facility] CHEM PANEL Lactic Acid 1.4 0.5 - 2.2 11/12 [facility] Lvl [facility] CHEM PANEL eGFR 76 11/12 Result Comment: The Medical eGFR is Center calculated using the CKD-EPI formula. In most young, healthy individuals the eGFR will be >90 mL/min/1.73m2 . The eGFR declines with age. An eGFR of 60-89 may be normal in some populations, particularly the elderly, for whom the CKD-EPI formula has not been extensively validated. Use of the eGFR is not recommended in the following populations:< br/>
[place] viduals with unstable creatinine concentration s, including patients and those with serious co-morbid conditions.<b r/>
Patie nts with extremes in muscle mass or diet.

The data above are obtained from the National Kidney Disease Education Program (NKDEP) which additionally recommends that when the eGFR is used in patients with extremes of body mass index for purposes of drug dosing, the eGFR should be multiplied by the estimated BMI. CHEM PANEL Calcium Lvl 8.2 8.5 - 10.5 11/[address] CHEM PANEL AGAP 14.0 10.0 - 11/12 [facility] 20.0 [facility] CHEM PANEL Creatinine 1.17 0.50 - 11/12 [facility] Lvl 1.40 [facility] CHEM PANEL Sodium Lvl 141 135 - 145 11/[address] CHEM PANEL CO2 26 24 - 32 11/[address] CHEM PANEL Potassium Lvl 4.0 3.5 - 5.1 11/[address] CHEM PANEL Chloride Lvl 105 95 - 109 11/[address] CHEM PANEL BUN 17 7 - 22 11/[address] CHEM PANEL Glucose Lvl 107 70 - 99 11/[address] HEMATOLOGY Lymphocytes # 1.6 1.0 - 5.5 11/[address] HEMATOLOGY Neutrophils # 6.2 1.5 - 8.1 11/[address] HEMATOLOGY Monocytes # 0.8 0.0 - 0.8 11/[address] HEMATOLOGY Eosinophils # 0.1 0.0 - 0.5 11/[address] HEMATOLOGY Monocytes 9.3 2.0 - 12.0 11/[address] HEMATOLOGY Lymphocytes 18.5 20.0 - 11/12 [facility] 40.0 [facility] HEMATOLOGY Segs 71.0 45.0 - 11/12 [facility] [place] 75.0 /2017 [facility] HEMATOLOGY Basophils 0.3 0.0 - 1.0 11/12 [facility] HEMATOLOGY Eosinophils 0.9 0.0 - 4.0 11/12 [facility] HEMATOLOGY RBC 4.19 4.70 - 11/12 [place] 6.10 /2017 [facility] HEMATOLOGY WBC 8.7 3.7 - 10.4 11/12 [facility] HEMATOLOGY Hgb 13.1 14.0 - 11/12 [place] 18.0 [facility] HEMATOLOGY Hct 37.8 42.0 - 11/12 [place] 54.0 /2017 [facility] HEMATOLOGY MCHC 34.6 32.0 - 11/12 [place] 36.0 /2017 [facility] HEMATOLOGY MCH 31.2 27.0 - 11/12 [place] 31.0 [facility] HEMATOLOGY MCV 90.3 80.0 - 11/12 [place] 94.0 [facility] HEMATOLOGY Platelet 203 133 - 450 11/12 [facility] HEMATOLOGY MPV 8.0 7.4 - 10.4 11/12 [facility] HEMATOLOGY RDW 13.6 11.5 - 11/12 [place] 14.5 [facility] DRUG SCREEN UDS Note See Note 11/12 [facility] (11/11/17 10:55 PM) /2017 [facility] Center DRUG SCREEN U Negative Negative 11/12 [facility] Phencyclidine *NA* Medical Scr (11/11/17 10:55 PM) Center DRUG SCREEN U Janett Scr Negative Negative 11/12 [place] *NA* Medical (11/11/17 10:55 PM) Center DRUG SCREEN U Benzodiaz Negative Negative 11/12 [place] Scr *NA* Medical (11/11/17 10:55 PM) Center DRUG SCREEN U Opiate Scr Positive Negative 11/12 [place] *ABN* Medical (11/11/17 10:55 PM) Center DRUG SCREEN U Cannab Scr Negative Negative 11/12 [place] *NA* Medical (11/11/17 10:55 PM) Center DRUG SCREEN U Cocaine Scr Negative Negative 11/12 [place] *NA* Medical (11/11/17 10:55 PM) Center DRUG SCREEN U Amph Scr Negative Negative 11/12 [place] *NA* /2017 Medical (11/11/17 10:55 PM) Center URINE AND UA Sq Epi None Seen 11/12 [facility] [facility] URINE AND UA RBC <1 0 - 2 11/12 [facility] URINE AND UA Mucus Few /LPF None Seen 11/12 [facility] STOOL /LPF /2017 [facility] URINE AND UA Spec Grav >=1.050 <=1.030 11/12 [facility] *ABN* /2017 [facility] (11/11/17 10:55 PM) [place] URINE AND UA <=1.0 0.1 - 1.0 11/12 [facility] Urobilinogen mg/dL [facility] URINE AND UA WBC 1 0 - 5 11/12 [facility] URINE AND UA Glucose Negative Negative 11/12 [facility] mg/dL mg/dL [facility] URINE AND UA Ketones 10 mg/dL Negative 11/12 [facility] mg/dL [facility] URINE AND UA Bili Negative Negative 11/12 [facility] *NA* /2017 [facility] (11/11/17 10:55 PM) [place] URINE AND UA Turbidity Clear Clear 11/12 [facility] (11/11/17 10:55 PM) [facility] URINE AND UA pH 5.0 5.0 - 8.0 11/12 [facility] URINE AND UA Protein 20 mg/dL Negative 11/12 [facility] STOOL mg/dL [facility] URINE AND UA Blood Negative Negative 11/12 [facility] (11/11/17 10:55 PM) [facility] URINE AND UA Nitrite Negative Negative 11/12 [facility] (11/11/17 10:55 PM) [facility] URINE AND UA Leuk Est Negative Negative 11/12 [facility] (11/11/17 10:55 PM) [facility] URINE AND UA Color Yellow Yellow 11/12 [facility] *NA* /2017 [facility] (11/11/17 10:55 PM) [place] BLOOD BANK ABO/Rh A POS 11/11 [facility] RESULTS [facility] BLOOD BANK Antibody Scrn Negative 11/11 [facility] RESULTS (11/11/17 6:01 PM) [facility] CHEM PANEL eGFR 40 11/11 Result Comment: The Medical eGFR is Center calculated using the CKD-EPI formula. In most young, healthy individuals the eGFR will be >90 mL/min/1.73m2 . The eGFR declines with age. An eGFR of 60-89 may be normal in some populations, particularly the elderly, for whom the CKD-EPI formula has not been extensively validated. Use of the eGFR is not recommended in the following populations:< br/>
Carley viduals with unstable creatinine concentration s, including patients and those with serious co-morbid conditions.<b r/>
Patie nts with extremes in muscle mass or diet.

The data above are obtained from the National Kidney Disease Education Program (NKDEP) which additionally recommends that when the eGFR is used in patients with extremes of body mass index for purposes of drug dosing, the eGFR should be multiplied by the estimated BMI. CHEM PANEL Chloride Lvl 102 95 - 109 11/[address] CHEM PANEL BUN 17 7 - 22 11/[address] CHEM PANEL Glucose Lvl 120 70 - 99 11/[address] CHEM PANEL Potassium Lvl 3.8 3.5 - 5.1 11/[address] CHEM PANEL Sodium Lvl 138 135 - 145 11/[address] CHEM PANEL Creatinine 1.30 0.50 - 11/11 [facility] 1.40 /2017 [facility] CHEM PANEL Calcium Lvl 10.0 8.5 - 10.5 11/[address] CHEM PANEL CO2 24 24 - 32 11/[address] CHEM PANEL AGAP 15.8 10.0 - 11/11 [place] 20.0 /2017 [facility] CHEM PANEL Lactic Acid 2.3 0.5 - 2.2 11/11 [facility] /[address] [place] [address] CHEM PANEL Bili Direct 0.1 0.0 - 0.3 11/[address] CHEM PANEL Bili Total 0.6 0.2 - 1.3 11/[address] CHEM PANEL Bili Indirect 0.5 0.0 - 1.0 11/[address] CHEM PANEL ALT 121 0 - 65 11/[address] CHEM PANEL AST 105 0 - 37 11/[address] CHEM PANEL Total Protein 7.5 6.4 - 8.4 11/[address] CHEM PANEL Albumin Lvl 4.1 3.5 - 5.0 11/11 [facility] CHEM PANEL Alk Phos 52 39 - 136 11/11 [facility]2017 [facility] CHEM PANEL Globulin 3.4 2.7 - 4.2 11/11 [facility]2017 [facility] CHEM PANEL A/G Ratio 1.2 0.7 - 1.6 11/11 [facility]2017 [facility] HEMATOLOGY Neutrophils # 20.9 1.5 - 8.1 11/11 2017 [facility] HEMATOLOGY Basophils 0.2 0.0 - 1.0 11/11 [facility]2017 [facility] HEMATOLOGY Monocytes # 1.3 0.0 - 0.8 11/11 [facility]2017 [facility] HEMATOLOGY Eosinophils # 0.1 0.0 - 0.5 11/11 [facility]2017 [facility] HEMATOLOGY Lymphocytes # 1.4 1.0 - 5.5 11/11 [facility]2017 [facility] HEMATOLOGY Segs 88.2 45.0 - 11/11 [facility] 75.0 [facility] HEMATOLOGY Lymphocytes 5.9 20.0 - 11/11 [facility] 40.0 [facility] HEMATOLOGY RBC Morph Normal 11/11 [facility] (11/11/17 5:50 PM) [facility] HEMATOLOGY Plt Morph Normal 11/11 [facility] (11/11/17 5:50 PM) [facility] HEMATOLOGY Monocytes 5.4 2.0 - 12.0 11/11 [facility] HEMATOLOGY Eosinophils 0.3 0.0 - 4.0 11/11 [facility] HEMATOLOGY Max Amplitude 56 52 - 71 11/11 [facility] HEMATOLOGY G-value Rapid 6.3 5.0 - 11.6 11/11 [facility] HEMATOLOGY Estimated % 1.2 0.0 - 7.5 11/11 [facility] Lysis [facility] HEMATOLOGY ACT (TEG) 97 86 - 118 11/11 [facility] HEMATOLOGY K-time Rapid 1.7 0.6 - 2.3 11/11 [facility]2017 [facility] HEMATOLOGY [place] 0.4 11/11 [facility]2017 [facility] HEMATOLOGY Angle Rapid 73 64 - 80 11/[address] HEMATOLOGY R-time Rapid 0.5 0.4 - 0.7 11/11 [facility]2017 [facility] HEMATOLOGY PTT 24.2 22.9 - 11/11 [place] 35.8 [facility] HEMATOLOGY WBC 23.7 3.7 - 10.4 11/11 [facility] HEMATOLOGY RBC 5.18 4.70 - 11/11 [facility] 6.10 [facility] HEMATOLOGY Hgb 15.6 14.0 - 11/11 [facility] 18.0 [facility] HEMATOLOGY Platelet 287 133 - 450 11/11 [facility] /[address] [place] [address] HEMATOLOGY RDW 13.7 11.5 - 11/11 [facility] 14.5 [facility] HEMATOLOGY MCH 30.0 27.0 - 11/11 [facility] 31.0 /2017 [facility] HEMATOLOGY MCHC 34.3 32.0 - 11/11 [facility] 36.0 [facility] HEMATOLOGY Hct 45.3 42.0 - 11/11 [facility] 54.0 [facility] HEMATOLOGY MCV 87.5 80.0 - 11/11 [facility] 94.0 [facility] HEMATOLOGY MPV 8.4 7.4 - 10.4 11/11 [facility]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 Section Social History Social History Date Source Social History TypeResponse 11/17/2017 [facility] Substance Abuse Use: None. Alcohol Past, Type Beer. Frequency: 1-2 times per month. Smoking Status Former smoker; Type: Cigarettes; Previous treatment: None; Exposure to Tobacco Smoke smoker; Cigarette Smoking Last 365 Days Yes; Reg Smoking Cessation Counseling No entered on: 05/17/18 Social History TypeResponse 11/17/2017 [facility] Substance Abuse Use: None. Alcohol Past, Type Beer. Frequency: 1-2 times per month. Smoking Status Former smoker; Type: Cigarettes; Previous treatment: None; Exposure to Tobacco Smoke smoker; Cigarette Smoking Last 365 Days Yes; Reg Smoking Cessation Counseling No entered on: 05/17/18 Family History No Data Provided for This Section Advance Directives No Data Provided for This Section Functional Status No Data Provided for This Section
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
[2018-08-26] MEDS ORDERED: FENTANYL CITR 100 MCG/2 ML ONE (17:23)
[2018-08-26] MEDS ORDERED: LIDOCAINE 1% MPF 5 ML VIAL ONE (17:26)
[2018-08-26] MEDS ORDERED: BUPIVACAINE 0.5% PF 10 ML VIAL ONE (17:26)
[2018-08-26] MEDS ORDERED: DOXYCYCLINE 100 MG CAP PO ONE (18:03)
[2018-08-26] MEDS ORDERED: TETANUS & DIPHTHERIA TOX,ADULT 0.5 ML VIAL ONE (18:03)
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
--- NOTE | 2018-08-26 18:21 | EDPHYS ---
Physician Documentation [facility] Name: Luis Angel Bower Age: 43 yrs Sex: Male : 1975 Arrival Date: 08/26/2018 Time: 16:59 Bed 19 Private MD: ED Physician Chico Swenson HPI: 08/26 17:48 This 43 yrs old Male presents to ER via Ambulatory with complaints of Fish snw fin stuck in finger. 17:48 Onset: The symptoms/episode began/occurred suddenly, just prior to arrival. Associated snw signs and symptoms: Pertinent positives: pain to area of foreign body. Modifying factors: The patient symptoms are alleviated by nothing. The patient has not experienced similar symptoms in the past. It is unknown whether or not the patient has recently seen a physician. Historical: - Allergies: 17:02 Clindamycin; la1 17:02 Morphine; la1 17:02 mushrooms; la1 17:02 unknown antibiotic for tooth abscess; la1 - PMHx: 17:02 blood clots; mass in stomach currently; mass on femur removed; testicular CA; la1 - Immunization history:: Adult Immunizations up to date. - Social history:: Smoking status: Patient/guardian denies using tobacco. - Ebola Screening: : No symptoms or risks identified at this time. ROS: 17:45 Constitutional: Negative for fever, chills, and weight loss, Eyes: Negative for injury, snw pain, redness, and discharge, ENT: Negative for injury, pain, and discharge, Neck: Negative for injury, pain, and swelling, Cardiovascular: Negative for chest pain, palpitations, and edema, Respiratory: Negative for shortness of breath, cough, wheezing, and pleuritic chest pain, Abdomen/GI: Negative for abdominal pain, nausea, vomiting, diarrhea, and constipation, Back: Negative for injury and pain, : Negative for injury, bleeding, discharge, and swelling, MS/Extremity: Negative for injury and deformity, Neuro: Negative for headache, weakness, numbness, tingling, and seizure, Psych: Negative for depression, anxiety, suicide ideation, homicidal ideation, and hallucinations. 17:45 Skin: Positive for puncture, of the dorsal aspect of proximal phalanx of right little finger, stoney thru and thru exposed. Exam: 17:45 Constitutional: This is a well developed, well nourished patient who is awake, alert, snw and in no acute distress. Head/Face: Normocephalic, atraumatic. Eyes: Pupils equal round and reactive to light, extra-ocular motions intact. Lids and lashes normal. Conjunctiva and sclera are non-icteric and not injected. Cornea within normal limits. Periorbital areas with no swelling, redness, or edema. ENT: Nares patent. No nasal discharge, no septal abnormalities noted. Tympanic membranes are normal and external auditory canals are clear. Oropharynx with no redness, swelling, or masses, exudates, or evidence of obstruction, uvula midline. Mucous membranes moist. Neck: Trachea midline, no thyromegaly or masses palpated, and no cervical lymphadenopathy. Supple, full range of motion without nuchal rigidity, or vertebral point tenderness. No Meningismus. Chest/axilla: Normal chest wall appearance and motion. Nontender with no deformity. No lesions are appreciated. 17:45 Respiratory: Lungs have equal breath sounds bilaterally, clear to auscultation and percussion. No rales, rhonchi or wheezes noted. No increased work of breathing, no retractions or nasal flaring. Abdomen/GI: Soft, non-tender, with normal bowel sounds. No distension or tympany. No guarding or rebound. No evidence of tenderness throughout. Back: No spinal tenderness. No costovertebral tenderness. Full range of motion. MS/ Extremity: Pulses equal, no cyanosis. Neurovascular intact. Full, normal range of motion. Neuro: Awake and alert, GCS 15, oriented to person, place, time, and situation. Cranial nerves II-XII grossly intact. Motor strength 5/5 in all extremities. Sensory grossly intact. Cerebellar exam normal. Normal gait. Psych: Awake, alert, with orientation to person, place and time. Behavior, mood, and affect are within normal limits. 17:45 Cardiovascular: Rate: tachycardic, Rhythm: regular, Heart sounds: normal. 17:45 Skin: injury, puncture(s), that are deep, of the dorsal aspect of proximal phalanx of right little finger. Vital Signs: 17:04 BP 125 / 86; Pulse 125; Resp 16; Temp 97.6; Pulse Ox 98% on R/A; Weight 79.38 kg; la1 Height 6 ft. 0 in. (182.88 cm); 18:22 BP 119 / 78; Pulse 97; Resp 18; Pulse Ox 99% on R/A; em 17:04 Body Mass Index 23.73 (79.38 kg, 182.88 cm) la1 Procedures: 17:29 Nerve block: (digital) of palmar aspect of proxima; phalanx of right index finger kb Medication: Lidocaine 1% with epinephrine, Marcaine 0.5%, Amount: 3.5 mls were injected, Effect: the patient has resolution of the pain, Set up for procedure. Performed by Rsoelyn CHEN Patient tolerated well. 17:47 Foreign Body Removal: hardhead stoney, from the right dorsal aspect of proximal phalanx snw of right little finger, by using a hemostat, incising to remove, lidocaine lavage, The patient tolerated the removal well. MDM: 17:29 Patient medically screened. kb 18:22 Data reviewed: vital signs, nurses notes. Data interpreted: Pulse oximetry: on room air snw is 98 %. Interpretation: normal. Counseling: I had a detailed discussion with the patient and/or guardian regarding: the historical points, exam findings, and any diagnostic results supporting the discharge/admit diagnosis, the presence of at least one elevated blood pressure reading (>120/80) during this emergency department visit, radiology results, the need for outpatient follow up, to return to the emergency department if symptoms worsen or persist or if there are any questions or concerns that arise at home. Response to treatment: the patient's symptoms have markedly improved after treatment. Special discussion: I have referred the patient to see his PCP for further evaluation of high blood pressure. Based on the history and exam findings, there is no indication for further emergent testing or inpatient evaluation. I discussed with the patient/guardian the need to see the primary care provider for further evaluation of the symptoms. 18:22 Special discussion: I discussed in detail with the patient the higher chance of wound snw infection based on his presenting history. 08/26 17:35 Order name: Hand Right 3 View XRAY snw 08/26 17:41 Order name: Dressing - Wound; Complete Time: 18:28 snw Administered Medications: 17:16 Drug: fentaNYL (PF) 50 mcg Route: IM; Site: left gluteus; la1 18:27 Follow up: Response: No adverse reaction; Pain is decreased em 17:16 Drug: Lidocaine (1 %) 5 ml Volume: 5 ml; Route: Infiltration; la1 18:28 Follow up: Response: No adverse reaction; Pain is decreased em 17:16 Drug: Marcaine (0.5 %) 5 ml Volume: 10 ml; Route: Infiltration; la1 18:28 Follow up: Response: No adverse reaction; Pain is decreased em 17:53 Drug: Doxycycline 100 mg Route: PO; em 18:28 Follow up: Response: No adverse reaction em 17:53 Drug: Tetanus-Diphtheria Toxoid Adult 0.5 ml {Vendor Representatives: [employer]. Exp: em 05/12/2020. Lot #: [id number]. } Route: IM; Site: right deltoid; 18:28 Follow up: Response: No adverse reaction em Disposition: 18:56 Co-signature as Attending Physician, Chico Swenson MD. ma2 Disposition: 08/26/18 18:19 Discharged to Home. Impression: Puncture wound with foreign body of right little finger without damage to nail, Contact with other nonvenomous marine animals. - Condition is Stable. - Discharge Instructions: Marine Life Injury, Puncture Wound, Sunburn, Adult, Wound Infection, VIS, Tetanus, Diphtheria (Td) - CDC. - Prescriptions for Doxycycline Hyclate 100 mg Oral Tablet - take 1 tablet by ORAL route every 12 hours; 20 tablet. Diclofenac Sodium 75 mg Oral Tablet Sustained Release - take 1 tablet by ORAL route 2 times per day; 30 tablet. - Medication Reconciliation Form, Thank You Letter, Antibiotic Education, Prescription Opioid Use form. - Follow up: Private Physician; When: 1 - 2 days; Reason: Recheck today's complaints, Continuance of care, Re-evaluation by your physician. Follow up: Emergency Department; When: As needed; Reason: Worsening of condition. Signatures: Dispatcher [employer] Roselyn Godinez FNP-C FNP-Rufina Ruiz FNP-C FNP-Devin Simmons, ARC TRIMMER ARC TRIMMER Heydi Diamond RN RN iw Attema, Lee, RN RN la1 Alzahri, Mohammad, MD MD ma2 Corrections: (The following items were deleted from the chart) 18:42 18:19 08/26/2018 18:19 Discharged to Home. Impression: Puncture wound with foreign body iw of right little finger without damage to nail; Contact with other nonvenomous marine animals. Condition is Stable. Discharge Instructions: Marine Life Injury, Puncture Wound, Sunburn, Adult, Wound Infection, VIS, Tetanus, Diphtheria (Td) - CDC. Prescriptions for Doxycycline Hyclate 100 mg Oral Tablet - take 1 tablet by ORAL route every 12 hours; 20 tablet, Diclofenac Sodium 75 mg Oral Tablet Sustained Release - take 1 tablet by ORAL route 2 times per day; 30 tablet. and Forms are Medication Reconciliation Form, Thank You Letter, Antibiotic Education, Prescription Opioid Use. Follow up: Private Physician; When: 1 - 2 days; Reason: Recheck today's complaints, Continuance of care, Re-evaluation by your physician. Follow up: Emergency Department; When: As needed; Reason: Worsening of condition. snw
[2018-08-26 18:55] VITALS: BP 119/78; O2SAT 99
[2018-08-26 18:56] VITALS: TEMP 97.6
--- NOTE | 2018-08-26 18:56 | RAD REPORT ---
EXAM DESCRIPTION: RAD - Hand Right 3 View - 08/26/2018 6:25 pm CLINICAL HISTORY: Hand pain, penetrating injury, possible foreign body COMPARISON: None. FINDINGS: No fracture is identified. There is no dislocation or periosteal reaction noted. No forei gn body identified. There is remodeling of the fifth metacarpal from old fracture. IMPRESSION: No retained foreign body identified. No acute bone finding.
== END 2018-08-26 18:42 | disposition home or self-care (01) ==
LOC: ER 16:56
PROC: 0JCJ0ZZ Extirpation of Matter from Right Hand Subcutaneous Tissue and Fascia, Open Approach (ICD-10-PCS; principal; 2018-08-26)
DX: S61.246A Puncture wound with foreign body of right little finger without damage to nail, initial encounter (principal); W45.8XXA Other foreign body or object entering through skin, initial encounter; Z88.1 Allergy status to other antibiotic agents; Z88.5 Allergy status to narcotic agent; C62.90 Malignant neoplasm of unspecified testis, unspecified whether descended or undescended; Z23 Encounter for immunization
CPT/HCPCS: 64450; 90471; 90714; 96372; 99284; J3010